=== PATIENT | male | born 2000 | race Caucasian/White ===

== ENCOUNTER 2021-04-16 07:50 | Emergency (ER) | payer OTHER ==
[2021-04-16 07:55] VITALS: BP 122/75; PULSE 70; RESP 18; TEMP 98.6
--- NOTE | 2021-04-16 08:36 | XR ---
EXAMINATION TYPE: XR hand complete RT DATE OF EXAM: 04/16/2021 COMPARISON: NONE HISTORY: Pain TECHNIQUE: Three views are submitted. FINDINGS: There is a tiny osseous density adjacent to the base of the first metacarpal suspicious for chip or a vulsion fracture. Could be either from the base of the first metacarpal trapezium. Remaining osseous structures intact. Joint spaces preserved. Chronic appearing additional deformity of the base of the first metacarpal. IMPRESSION: 1. Tiny chip or avulsion fracture near the articulation of the base of the first metacarpal and trape zium correlate with point tenderness.
--- NOTE | 2021-04-16 08:37 | XR ---
EXAMINATION TYPE: XR wrist complete RT DATE OF EXAM: 04/16/2021 COMPARISON: NONE HISTORY: Pain TECHNIQUE: Four views submitted. FINDINGS: There is a tiny osseous density adjacent to the base of the first metacarpal suspicious for chip or a vulsion fracture. Could be either from the base of the first metacarpal trapezium. Remaining osseous structures intact. Joint spaces preserved. Chronic appearing additional deformity of the base of the first metacarpal. Well-corticated ossific density adjacent to the scaphoid could be related to access ory ossicle or remote trauma. IMPRESSION: 1. Tiny chip or avulsion fracture near the articulation of the base of the first metacarpal and trape zium correlate with point tenderness.
--- NOTE | 2021-04-16 08:43 | ED ---
General Adult HPI - General Chief complaint: Extremity Injury, Upper Stated complaint: thumb injury Time Seen by Provider: 04/16/21 07:56 Source: patient Mode of arrival: ambulatory Limitations: no limitations - History of Present Illness Initial comments: 20 yo M presents for a CC of R thumb pain x 3 days. Pt was "horseing around" with his friends 3 days ago and went to grab him and injured his thumb. Pt has fx his thumb in the past. Pt states he cannot move it and is afraid it is broken again. Denies loss of sensation. Denies any other injuries or complaints. - Related Data Allergies Allergy/AdvReac Type Severity Reaction Status Date / Time No Known Allergies Allergy Verified 04/16/21 07:54 Review of Systems ROS Statement: Those systems with pertinent positive or pertinent negative responses have been documented in the HPI. ROS Other: All systems not noted in ROS Statement are negative. Past Medical History Past Medical History: No Reported History History of Any Multi-Drug Resistant Organisms: None Reported Past Surgical History: Appendectomy Additional Past Surgical History / Comment(s): knee surgery, hand surgery Past Psychological History: No Psychological Hx Reported Smoking Status: Vaper Past Alcohol Use History: Occasional Past Drug Use History: Marijuana General Exam Limitations: no limitations General appearance: alert Head exam: Present: atraumatic Eye exam: Present: normal appearance, PERRL, EOMI. Absent: scleral icterus, conjunctival injection ENT exam: Present: normal exam, mucous membranes moist Neck exam: Present: normal inspection, full ROM. Absent: tenderness Respiratory exam: Present: normal lung sounds bilaterally. Absent: respiratory distress, wheezes Cardiovascular Exam: Present: regular rate, normal rhythm, normal heart sounds Extremities exam: Present: tenderness (tenderness to the 1st metacarapal) Course Vital Signs 04/16/21 07:51 Temperature 98.6 F Pulse Rate 70 Respiratory 18 Rate Blood Pressure 122/75 O2 Sat by Pulse 99 Oximetry Procedures - Orthopedic Splinting/Casting Injury #1 Side: right Upper Extremity Injury Location: short arm Upper Extremity Immobilizer: thumb spica Additional Comments: Neurovascular status intact after splint applied Medical Decision Making - Medical Decision Making X-ray of the right hand and wrist shows a tiny chip or avulsion fracture near the articulation of the base of the first metacarpal and trapezium, this is clinically correlated with point tenderness. Patient was placed in a thumb spica. Will follow up with orthopedics. Will return here for any worsening symptoms. Disposition Clinical Impression: Thumb fracture Disposition: HOME SELF-CARE Condition: Good Instructions (If sedation given, give patient instructions): Hand Fracture (ED) Additional Instructions: Please keep splint dry. Take Motrin and Tylenol for pain. Follow-up with orthopedics. Return to the emergency room for any worsening symptoms. Is patient prescribed a controlled substance at d/c from ED?: No Referrals: Carl Ware MD [STAFF PHYSICIAN] - 1-2 days Time of Disposition: 08:57
== END 2021-04-16 09:20 | disposition home or self-care (01) ==
LOC: EC 07:50
DX: S62.501A Fracture of unspecified phalanx of right thumb, initial encounter for closed fracture (principal); F17.290 Nicotine dependence, other tobacco product, uncomplicated; F12.90 Cannabis use, unspecified, uncomplicated; Z90.49 Acquired absence of other specified parts of digestive tract; W22.8XXA Striking against or struck by other objects, initial encounter; Y93.83 Activity, rough housing and horseplay